=== PATIENT | male | born 1950 | race Caucasian/White ===

== ENCOUNTER 2017-07-24 09:55 | Outpatient (RCR) | payer MEDICARE, BC, MEDICAID ==
[~2017-07-24] VITALS: Ht 172.7 cm; Wt 89.1 kg
[~2017-07-24 09:55] MED LIST: AMOXICILLIN 8751 TAB PO; DESYREL PO; FLOMAX 0.40.4 MG/CAP PO; GABAPENTIN PO; HUMALOG100 U/ML SC; LANTUS100 U/ML SQ; LASIX 80MG TABL80 MG PO; LORATADINE10 MG PO; NOVOLOG 100U100 U/ML SQ; PREVACID 30MG30 MG PO; SPECTAZOLE TP; SYNTHROID0.05 MG/TA PO; TRIAMCINOLONE A15 GM TP; TYLENOL 500MG500 MG PO; ZOCOR 20MG20 MG PO; ZOLOFT100 MG PO; [UNRECOGNIZED DRUG - OTHER] PO
[2017-07-24 11:16] VITALS: BP 101/54; PULSE 84; TEMP 97.5
== END 2017-10-22 | disposition still patient (30) ==
LOC: EUO
DX: Z45.2 Encounter for adjustment and management of vascular access device (principal); E11.621 Type 2 diabetes mellitus with foot ulcer; L97.529 Non-pressure chronic ulcer of other part of left foot with unspecified severity; B95.62 Methicillin resistant Staphylococcus aureus infection as the cause of diseases classified elsewhere; R91.8 Other nonspecific abnormal finding of lung field; S42.032K Displaced fracture of lateral end of left clavicle, subsequent encounter for fracture with nonunion; Z95.828 Presence of other vascular implants and grafts
CPT/HCPCS: C1751; C1894